=== PATIENT | female | born 1965 | race Caucasian/White ===

== ENCOUNTER 2017-04-25 09:36 | Outpatient (CLI) | payer MEDICARE ==
--- NOTE | 2017-04-25 11:45 | RAD ---
CERVICAL SPINE FOUR VIEWS: History: Cervical disc displacement. Post op follow up. Comparison: Cervical spine, 02-06-17. FINDINGS: Post op changes are noted on today's exam. There is evidence of prior anterior fusion procedure. Ant erior plate and screws transfix C5-6 with interbody implant in adequate position. Posterior alignmen t is preserved throughout the cervical spine. Very mild degenerative changes noted. IMPRESSION: Post-operative changes at C5-6 noted since prior study. POS: [facility]
== END 2017-04-25 09:37 | disposition home or self-care (01) ==
LOC: TBSIIMAG 09:36
PROVIDERS: ATTEND Surgery
DX: M50.20 Other cervical disc displacement, unspecified cervical region (principal); Z98.890 Other specified postprocedural states
CPT/HCPCS: 72040

== ENCOUNTER 2017-05-05 17:17 | Emergency (ER) | payer MEDICARE ==
[~2017-05-05 17:17] MED LIST: ISOVUE-370 76%-LOCM 1 ML ONE
[2017-05-05 18:13] LABS: #Basophils 0.1 thou/uL (0.0-0.2); #Lymphocytes 2.3 thou/uL (1.20-3.40); #Monocytes 0.4 thou/uL (0.11-0.59); #Neutrophils 3.2 thou/uL (1.40-6.50); %Basophils 1.6 % (0.0-1.0); %Eosinophils 0.7 % (0.0-10.0); %Lymphocytes 38.1 % (21.0-51.0); %Monocytes 6.9 % (0.0-10.0); Hematocrit 37.7 % (36.0-47.0); Mean Platelet Volume 6.8 fL (7.4-10.4); Red Blood Cell (RBC) Count 3.91 mill/uL (4.20-5.40); White Blood Cell (WBC) Count 6.1 thou/uL (4.8-10.8)
[2017-05-05] MEDS ORDERED: Ketorolac Tromethamine 30 MG/ML VIAL ONE (18:32)
[2017-05-05] MEDS ORDERED: Metoclopramide HCl 10 MG/2 ML VIAL ONE (18:32)
[2017-05-05] MEDS ORDERED: diphenhydrAMINE 50 MG/ML VIAL ONE (18:32)
[2017-05-05 18:34] LABS: ALT (SGPT) Less than 7 U/L (8-55); AST (SGOT) 11 U/L (5-34); Alkaline Phosphatase 66 U/L (40-150); Anion Gap 12 mmol/L (10-20); BUN (Urea Nitrogen) 12 mg/dL (9.8-20.1); Bilirubin, Total 0.5 mg/dL (0.2-1.2); Calc. Creatinine Clearance 0 mL/min (70-130); Calcium 8.9 mg/dL (7.8-10.44); Carbon Dioxide 23 mmol/L (22-29); Chloride 108 mmol/L (98-107); Estimated GFR-MDRD 84; Globulin 2.6 g/dL (2.4-3.5); Protein, Total 6.6 g/dL (6.0-8.3)
[2017-05-05 19:12] LABS: Bilirubin Negative (Negative); Blood, Urine Negative (Negative); Glucose, Urine (Dipstick) Negative (Negative); Ketone, Urine Negative (Negative); Nitrite Negative (Negative); Protein, Urine (Dipstick) Negative (Neg-Trace); Urobilinogen 0.2 mg/dL (0.2-1.0)
--- NOTE | 2017-05-05 19:31 | CT ---
BRAIN CT WITHOUT IV CONTRAST: 05/05/17 HISTORY: Headache. Pain at the base of her neck. No focal mass or midline shift. No intra or extra-axial hemorrhage. Sinuses and mastoids are clear. IMPRESSION: No acute intracranial process. No mass or bleed or other acute process. POS: [facility]
--- NOTE | 2017-05-05 20:16 | CT ---
CT ANGIOGRAM OF THE NECK WITH CONTRAST CERVICAL SPINE CT SCAN WITH CONTRAST: 05/05/17 CT angiogram of the neck is performed including 3D rendering. The left vertebral artery is mildly dominant. There is a small calcified plaque in the right carotid artery bifurcation. No evidence for significant stenosis. No evidence for dissection. No evidence f or significant adenopathy. No mass, abscess or abnormal fluid collection within the neck. IMPRESSION: Small calcified plaque in the right carotid artery bifurcation but no hemodynamically significant st enosis. No evidence for dissection. CERVICAL SPINE CT SCAN WITH IV CONTRAST: Anterior cervical fusion changes are noted at C5-C6. The tips of the internal fixation screws stabil izing the anterior metal plate extend to the posterior vertebral junction at both C5 and particularl y at C6. No evidence for acute fracture or dislocation. No significant central canal, lateral recess , or foraminal stenosis. IMPRESSION: No fracture or dislocation. Anterior metal plate and screws stabilize C5-C6 evidence for anterior ce rvical fusion changes. No significant canal or lateral recess or foraminal stenosis. POS: [facility]
== END 2017-05-05 21:24 | disposition home or self-care (01) ==
LOC: ERS 17:17
DX: R51 Headache (principal); G89.29 Other chronic pain
CPT/HCPCS: 36415; 70450; 70498; 72125; 80053; 81003; 81025; 84703; 85025; 96361; 96374; 96375; J1200; J1885; J2765

== ENCOUNTER 2018-08-28 12:53 | Outpatient (CLI) | payer MEDICARE ==
--- NOTE | 2018-08-28 15:55 | MRI ---
MRI CERVICAL SPINE WITHOUT CONTRAST: Date: 08/28/18 HISTORY: Cervical radiculopathy. Right-sided neck pain extending down her arm with finger numbness. TECHNIQUE: MRI of the cervical spine is performed without intravenous Gadolinium administration. Multisequential , multiplanar imaging is performed. FINDINGS: Anterior fusion changes at C5-C6 level with probable anterior fusion plate and prosthesis in the disc space. There is associated metallic susceptibility artifact. Remainder of the cervical vertebra have appropriate signal intensity. No STIR hyperintensity to sugge st vertebral body edema or ligamentous injury. Visualized brain parenchyma, cervicomedullary junction, cervical cord, and upper thoracic cord have a normal size and signal intensity. C2-C3: No significant central canal stenosis or neural foraminal narrowing. C3-C4: There is a central disc protrusion. Mild central canal stenosis. Foramina are patent. C4-C5: No significant posterior disc abnormality. No significant central canal stenosis. Neural fora john are patent. C5-C6: No significant central canal stenosis. Foramina are patent. C6-C7: No significant central canal stenosis. Foramina are patent. C7-T1: No significant central canal stenosis. Neural foramina are patent. IMPRESSION: 1. Cervical fusion from C5 through C6. 2. No significant central canal stenosis or significant foraminal narrowing. POS: [facility]
== END 2018-08-28 12:54 | disposition home or self-care (01) ==
LOC: TBSIIMAG 12:53
PROVIDERS: ATTEND Specialist
DX: M54.12 Radiculopathy, cervical region (principal); Z98.1 Arthrodesis status
CPT/HCPCS: 72141

== ENCOUNTER 2020-11-01 10:29 | Outpatient (CLI) | payer MEDICARE ==
[2020-11-02 01:17] LABS: SARS-CoV-2 PCR by NAA Not Detected (NotDetected)
== END 2020-11-01 10:30 | disposition home or self-care (01) ==
LOC: LABBT 10:29
PROVIDERS: ATTEND Specialist
DX: Z20.822 Contact with and (suspected) exposure to COVID-19 (principal)
CPT/HCPCS: U0003; U0005; 87635

== ENCOUNTER 2020-11-04 09:59 | Day surgery (SDC) | payer MEDICARE ==
[2020-11-03 11:57] VITALS: BMI 23.8
[2020-11-04] MEDS ORDERED: CEFAZOLIN 1 GM VIAL ONE (11:00)
[2020-11-04] MEDS ORDERED: Sodium Chloride 0.9% 100 ML ONE (11:00)
[2020-11-04] MEDS ORDERED: Bupivacaine PF 0.5% 30 ML VIAL ONE (11:27)
[2020-11-04] MEDS ORDERED: EPINEPHrine 1 MG/ML AMP ONE (11:27)
[2020-11-04] MEDS ORDERED: Propofol 500 MG/50 ML VIAL ONE (12:54)
[2020-11-04] MEDS ORDERED: HYDROmorphone 0.5 MG/0.5 ML SYRINGE ONE (12:54)
[2020-11-04] MEDS ORDERED: Fentanyl 100 MCG/2 ML VIAL ONE ×3 (12:54→16:18)
[2020-11-04] MEDS ORDERED: PROPOFOL 200 MG/20 ML VIAL ONE (13:08)
[2020-11-04] MEDS ORDERED: Lidocaine 1% PF 5 ML VIAL ONE (13:08)
[2020-11-04] MEDS ORDERED: PROPOFOL 40 ML ONE (13:56)
[2020-11-04] MEDS ORDERED: Sodium Chloride 0.9% 10 ML ONE (15:47)
[2020-11-04] MEDS ORDERED: HYDROcodone/Acetaminophen 5/325 mg Tablet ONE (17:20)
[2020-11-04] MEDS ORDERED: Ondansetron ODT 4 MG TAB ONE (17:30)
== END 2020-11-04 17:35 | disposition home or self-care (01) ==
LOC: SDC 09:59
PROVIDERS: ATTEND Specialist
PROC: 0JH70DZ Insertion of Multiple Array Stimulator Generator into Back Subcutaneous Tissue and Fascia, Open Approach (ICD-10-PCS; principal; 2020-11-04)
PROC: 00HU3MZ Insertion of Neurostimulator Lead into Spinal Canal, Percutaneous Approach (ICD-10-PCS; 2020-11-04)
DX: M96.1 Postlaminectomy syndrome, not elsewhere classified (principal); G89.4 Chronic pain syndrome; M50.123 Cervical disc disorder at C6-C7 level with radiculopathy; M48.02 Spinal stenosis, cervical region; G40.909 Epilepsy, unspecified, not intractable, without status epilepticus; M79.7 Fibromyalgia; Z79.899 Other long term (current) drug therapy; Z88.1 Allergy status to other antibiotic agents; Z88.2 Allergy status to sulfonamides; Z88.5 Allergy status to narcotic agent; Z98.1 Arthrodesis status
CPT/HCPCS: 63650 ×2; 63685; 72020; C1778; C1787; C1820; L8689; 76000; J0171; J0690; J1170; J2704; J3010; J3370; J3490; Q0162; S0020

== ENCOUNTER 2021-04-18 10:15 | Outpatient (CLI) | payer MEDICARE ==
[2021-04-18 19:06] LABS: SARS-CoV-2 PCR by NAA Not Detected (NotDetected)
== END 2021-04-18 10:16 | disposition home or self-care (01) ==
LOC: LABBT 10:15
PROVIDERS: ATTEND Specialist
DX: Z01.812 Encounter for preprocedural laboratory examination (principal); M96.1 Postlaminectomy syndrome, not elsewhere classified; G89.4 Chronic pain syndrome; Z20.822 Contact with and (suspected) exposure to COVID-19
CPT/HCPCS: U0003; U0005

== ENCOUNTER 2021-04-21 10:33 | Day surgery (SDC) | payer BC, MEDICARE ==
[2021-04-20 15:26] VITALS: BMI 25.4
[2021-04-21] MEDS ORDERED: CEFAZOLIN 1 GM VIAL ONE (10:47)
[2021-04-21] MEDS ORDERED: Sodium Chloride 0.9% 100 ML ONE (10:47)
[2021-04-21] MEDS ORDERED: Scopolamine 1.5 mg/72 hour Patch ONE (11:08)
[2021-04-21] MEDS ORDERED: Fentanyl 100 MCG/2 ML VIAL ONE ×2 (11:08→12:39)
[2021-04-21] MEDS ORDERED: Bupivacaine PF 0.5% 30 ML VIAL ONE (12:18)
[2021-04-21] MEDS ORDERED: Sodium Chloride 0.9% 10 ML ONE (12:18)
[2021-04-21] MEDS ORDERED: EPINEPHrine 1 MG/ML AMP ONE (12:18)
[2021-04-21] MEDS ORDERED: Lidocaine 2% Jelly 5 ML TUBE ONE (12:39)
[2021-04-21] MEDS ORDERED: Midazolam HCl 2 mg/2 ml Vial ONE (12:39)
[2021-04-21] MEDS ORDERED: Rocuronium Bromide 10 MG/ML (10ML VIAL) ONE (12:51)
[2021-04-21] MEDS ORDERED: PROPOFOL 200 MG/20 ML VIAL ONE (12:51)
[2021-04-21] MEDS ORDERED: Lidocaine 1% PF 5 ML VIAL ONE (12:51)
[2021-04-21] MEDS ORDERED: PHENYLEPHRINE-NS 100 MCG/ML 10 ML SYRINGE ONE ×2 (12:51→14:52)
[2021-04-21] MEDS ORDERED: Dexamethasone 20 MG/5 ML VIAL ONE (12:51)
[2021-04-21] MEDS ORDERED: Glycopyrrolate 0.2 MG/ML 5 ML SYRINGE ONE (12:51)
[2021-04-21] MEDS ORDERED: Ondansetron PF 4 MG/2 ML Vial ONE (12:51)
[2021-04-21] MEDS ORDERED: Thrombin 5000 UNITS/5 ML VIAL ONE (14:41)
[2021-04-21] MEDS ORDERED: Ondansetron ODT 4 MG TAB ONE (16:52)
[2021-04-21] MEDS ORDERED: HYDROcodone/Acetaminophen 5/325 mg Tablet ONE (17:17)
== END 2021-04-21 18:05 | disposition home or self-care (01) ==
LOC: SDC 10:33
PROVIDERS: ATTEND Specialist
PROC: 0JH70MZ Insertion of Stimulator Generator into Back Subcutaneous Tissue and Fascia, Open Approach (ICD-10-PCS; principal; 2021-04-21)
PROC: 0JWT0MZ Revision of Stimulator Generator in Trunk Subcutaneous Tissue and Fascia, Open Approach (ICD-10-PCS; principal; 2021-04-21)
DX: M96.1 Postlaminectomy syndrome, not elsewhere classified (principal); G89.4 Chronic pain syndrome; M54.12 Radiculopathy, cervical region; Z96.82 Presence of neurostimulator; Z88.1 Allergy status to other antibiotic agents; Z88.2 Allergy status to sulfonamides; Z88.5 Allergy status to narcotic agent; Z79.890 Hormone replacement therapy; Z79.899 Other long term (current) drug therapy; Z98.890 Other specified postprocedural states; Z90.49 Acquired absence of other specified parts of digestive tract; Z90.710 Acquired absence of both cervix and uterus; Z98.1 Arthrodesis status
CPT/HCPCS: 72020; 76000; J0171; J0690; J2250; J3010; J3370; J3490; Q0162; S0020

== ENCOUNTER 2022-10-11 09:37 | Outpatient (CLI) | payer BC | END 2022-10-11 09:38 | disposition home or self-care (01) | LOC: BICRAD 09:37 | PROVIDERS: ATTEND Nurse Practitioner Family | DX: M47.816 Spondylosis without myelopathy or radiculopathy, lumbar region (principal) | CPT/HCPCS: 72100 ==

== ENCOUNTER 2023-01-11 11:06 | Day surgery (SDC) | payer MEDICARE ==
[2023-01-10 11:51] VITALS: BMI 23.0
[2023-01-11] MEDS ORDERED: Bupivacaine HCl 0.5%/Epinephrine 1:200,000/PF 30 ml Vial ONE (12:25)
[2023-01-11] MEDS ORDERED: methylPREDNISolone Acetate 40 mg/ml Vial ONE (12:34)
[2023-01-11] MEDS ORDERED: Lidocaine 1% (PF) 30 ML VIAL ONE (12:34)
[2023-01-11] MEDS ORDERED: CEFAZOLIN 1 GM VIAL ONE (12:38)
[2023-01-11] MEDS ORDERED: Sodium Chloride 0.9% 100 ML ONE (12:38)
[2023-01-11] MEDS ORDERED: Midazolam HCl 2 mg/2 ml Vial ONE (12:48)
[2023-01-11] MEDS ORDERED: Propofol 500 MG/50 ML VIAL ONE ×3 (12:49→14:51)
[2023-01-11] MEDS ORDERED: Esmolol 100 MG/10 ML VIAL ONE ×2 (12:49→13:00)
[2023-01-11] MEDS ORDERED: Scopolamine 1.5 mg/72 hour Patch ONE (12:51)
[2023-01-11] MEDS ORDERED: Dexamethasone 20 MG/5 ML VIAL ONE (13:00)
[2023-01-11] MEDS ORDERED: PROPOFOL 200 MG/20 ML VIAL ONE (13:00)
[2023-01-11] MEDS ORDERED: Ketorolac Tromethamine 30 MG/ML VIAL ONE (13:00)
[2023-01-11] MEDS ORDERED: Ondansetron PF 4 MG/2 ML Vial ONE ×2 (13:00→13:10)
[2023-01-11] MEDS ORDERED: Vancomycin 1 GM VIAL ONE (13:31)
[2023-01-11] MEDS ORDERED: PROPOFOL 20 ML ONE ×2 (14:38→15:46)
[2023-01-11] MEDS ORDERED: Lidocaine 2% PF 5 ML VIAL ONE (15:00)
[2023-01-11] MEDS ORDERED: fentaNYL 50 mcg/mL 1 mL Vial ONE (15:15)
== END 2023-01-11 17:25 | disposition home or self-care (01) ==
LOC: SDC 11:06
PROVIDERS: ATTEND Specialist
PROC: 00WV0MZ Revision of Neurostimulator Lead in Spinal Cord, Open Approach (ICD-10-PCS; principal; 2023-01-11)
DX: M96.1 Postlaminectomy syndrome, not elsewhere classified (principal); M54.12 Radiculopathy, cervical region; G89.4 Chronic pain syndrome; M54.2 Cervicalgia; Z88.1 Allergy status to other antibiotic agents; Z88.5 Allergy status to narcotic agent; Z88.2 Allergy status to sulfonamides; Z88.8 Allergy status to other drugs, medicaments and biological substances
CPT/HCPCS: 63688; 72020; C1713 ×2; C1778; J3010; J0690; J1030; J1100; J1885; J2001; J2250; J2405; J2704; J3370; J3490